=== PATIENT | male | born 1955 | race Caucasian/White ===

== ENCOUNTER 2021-04-21 13:59 | Emergency (ER) | payer BC, MEDICARE ==
[~2021-04-21] VITALS: Ht 175.3 cm; Wt 79.6 kg
[2021-04-21 14:06] VITALS: BP 152/96
--- NOTE | 2021-04-21 14:52 | RAD ---
XR SHOULDER_RIGHT 2+ VIEWS History: Reason: injury 3 weeks ago, pt told dislocated / Spl. Instructions: / History: Pain Technique: 3 views right shoulder Comparison: None. Findings: No dislocation. Slight inferior subluxation of the humerus in relation to the glenoid. No fracture. M ild glenohumeral and acromioclavicular DJD. Impression: 1. Slight inferior subluxation of the humerus in relation to the glenoid, may relate to joint effusi on. Electronically signed by: Micky Lovelace DO (04/21/2021 2:50 PM) [id number]
--- NOTE | 2021-04-21 15:01 | PHYS DOC ---
Past History Past Medical History: No Pertinent History Past Surgical History: No Surgical History Smoking: Non-smoker Alcohol Use: None Drug Use: None General Adult EDM: Chief Complaint: SHOULDER INJURY HPI: HPI: Patient is a 65 year old male who presents from PCP's office with right shoulder pain and possible dislocation. States that the pain began three weeks ago while he was spinning his granddaughters on playground equipment. Imaging obtained at PCP's office seemed to indicated a dislocation and patient was referred here. Believes his range of motion is becoming more limited secondary to pain. Is having more difficulty performing his job due to pain. Reports some tingling over his medial arm but denies any numbness. Review of Systems: Review of Systems: Constitutional: Denies fever or chills Eyes: Denies redness or eye pain HENT: Denies nasal congestion or sore throat Respiratory: Denies cough or shortness of breath Cardiovascular: Denies chest pain or palpitations GI: Denies abdominal pain, nausea, or vomiting : Denies dysuria or hematuria Musculoskeletal: Reports right shoulder pain. Denies back pain. Integument: Denies rash or skin lesions Neurologic: Denies headache, focal weakness or sensory changes Complete systems were reviewed and found to be within normal limits, except as documented in this note. Allergies: Allergies: Allergies Coded Allergies Type Severity Reaction Last Updated Verified Penicillins Allergy Unknown 04/21/21 Yes Physical Exam: PE: Constitutional: Well developed, well nourished, no acute distress, non-toxic appearance HENT: Normocephalic, atraumatic Eyes: Conjunctiva normal, no discharge Neck: Normal range of motion, no tenderness, supple Lungs & Thorax: No respiratory distress, equal chest rise and fall Abdomen: Soft, no tenderness Skin: Warm, dry, no erythema, no rash Back: No tenderness, no CVA tenderness Extremities: ROM of right shoulder limited in flexion and abduction secondary to pain. Cap refill <2 seconds. 2+ radial pulse. Remaining extremities nontender with full ROM. No edema. Neurologic: Alert and oriented X 3, normal motor function. Psychologic: Affect normal, judgment normal Current Patient Data: Vital Signs: Vital Signs Date Time Temp Pulse Resp B/P (MAP) Pulse Ox O2 Delivery O2 Flow Rate FiO2 04/21/21 14:06 97.6 70 18 152/96 98 Room Air EKG: EKG: [] Radiology/Procedures: Radiology/Procedures: PROCEDURE: SHOULDER 2+V RIGHT XR SHOULDER_RIGHT 2+ VIEWS History: Reason: injury 3 weeks ago, pt told dislocated / Spl. Instructions: / History: Pain Technique: 3 views right shoulder Comparison: None. Findings: No dislocation. Slight inferior subluxation of the humerus in relation to the glenoid. No fracture. Mild glenohumeral and acromioclavicular DJD. Impression: 1. Slight inferior subluxation of the humerus in relation to the glenoid, may relate to joint effusion. Electronically signed by: Micky Lovelace DO (04/21/2021 2:50 PM) [id number] Heart Score: C/O Chest Pain: N/A Course & Med Decision Making: Course & Med Decision Making Pertinent Imaging studies reviewed. (See chart for details) Patient presents from PCP's office for concerns over possible shoulder dislocation based on imaging obtained there. Imaging in the ED was negative for any dislocation. Patient provided with a shoulder sling and educated on doing shoulder circles multiple times daily. Patient stable for discharge with outpatient follow-up with PCP/orthopedics. Orthopedic referral provided. Discussed findings and plan with patient, who acknowledges understanding and agreement. Dragon Disclaimer: Dragon Disclaimer: This electronic medical record was generated, in whole or in part, using a voice recognition dictation system. Departure Departure: Impression: Primary Impression: Shoulder pain, right Qualified Codes: M25.511 - Pain in right shoulder Disposition: HOME / SELF CARE / HOMELESS Condition: STABLE Referrals: TYLER DILLON MD (PCP) VERONICA LEIGH MD Patient Instructions: Arm Sling Use, [id number], Shoulder Pain, [id number] Additional Instructions: Ice area of discomfort 20 minutes on then leave off next 20 minutes. Use [id number] ibuprofen or naproxen for pain and discomfort. May also use Tylenol in addition. Make sure to take arm out of sling at least 5 times daily and perform shoulder circles. Perform 10 circles in one direction then reverse performing another 10 circles in the opposite direction. SINCERE PRATT DO Apr 21, 2021 15:01
== END 2021-04-21 15:10 | disposition home or self-care (01) ==
LOC: ER 13:59
DX: M25.511 Pain in right shoulder (principal); R20.2 Paresthesia of skin; Z88.0 Allergy status to penicillin
CPT/HCPCS: 73030; 99283